=== PATIENT | male | born 1965 | race Caucasian/White ===

== ENCOUNTER 2016-06-10 08:53 | Day surgery (SDC) | payer OTHER ==
[~2016-06-10 08:53] MED LIST: ceFAZolin 2 GM/DEXTROSE 100 ML IV ONE
[2016-06-10] MEDS ORDERED: LR 1,000 ML IV ONE (09:10)
[2016-06-10] MEDS ORDERED: LIDOCAINE 1% 5 ML SDV ID PRN (09:10)
[2016-06-10] MEDS ORDERED: CEFAZOLIN 2 GM/DEXTROSE/100 ML BAG IV ONE (09:16)
[2016-06-10] MEDS ORDERED: LIDOCAINE 1% 2 ML INJ ONE (09:16)
[2016-06-10] MEDS ORDERED: BUPIVACAINE 0.5% 30 ML SDV ONE (10:56)
[2016-06-10] MEDS ORDERED: MIDAZOLAM 2 MG/2 ML VIAL ONE ×2 (11:19→11:20)
[2016-06-10] MEDS ORDERED: PROPOFOL 200 MG/20 ML VIAL ONE (11:21)
[2016-06-10] MEDS ORDERED: fentaNYL 100 MCG/2 ML INJ ONE (11:21)
[2016-06-10] MEDS ORDERED: PROPOFOL/EMULSION 500 MG/50 ML BOTTLE IV ONE (11:27)
[2016-06-10] MEDS ORDERED: LIDOCAINE 1% 30 ML SDV ONE (11:31)
--- NOTE | 2016-06-10 13:18 | GOP ---
[f rep st] OPERATIVE REPORT DATE OF OPERATION: 06/10/2016 SURGEON: Zaynab Olguin MD RETAIL PHARMACY MANAGER: Lorrie Robin PA-C. ANESTHESIA: Monitored anesthesia care with sedation. ANESTHESIOLOGIST: Dr. Mustapha Coleman. PREOPERATIVE DIAGNOSIS: Incarcerated ventral hernia. POSTOPERATIVE DIAGNOSIS: Incarcerated ventral hernia. PROCEDURE PERFORMED: Ventral hernia. FINDINGS: 1.5 cm defect incarcerated omentum. SPECIMENS: None. ESTIMATED BLOOD LOSS: 10 cc. INDICATIONS: The patient is a 50-year-old who had a previous laparoscopic cholecystectomy. He deve loped a hernia at the extraction site. DESCRIPTION OF PROCEDURE: Fadi was brought into the operating room, placed supine on the table, and monitored anesthesia care with IV sedation was performed. His abdomen was prepped and draped in th e usual sterile fashion. I infiltrated the area with 0.5% Marcaine mixed with 1% lidocaine. I made an incision over the defect. I dissected down through the subcutaneous tissues. I encountered ome ntum. I circumferentially dissected this away from the fascial defect. The fascial defect was abou t 1.5 cm. Once the omentum was fully reduced into the abdominal cavity, I closed the site with 0 PD S. I closed Elgin's with 3-0 Vicryl. I closed the skin with 3-0 Vicryl, followed by 4-0 Monocryl. Dermabond applied. He was awakened in the operating room, transferred to PACU in stable condition . /[id number]/MODL
== END 2016-06-10 13:30 | disposition home or self-care (01) ==
LOC: FSGY 08:53
PROVIDERS: ATTEND Surgery
PROC: 0WQF0ZZ Repair Abdominal Wall, Open Approach (ICD-10-PCS; principal; 2016-06-10 10:45)
DX: K43.0 Incisional hernia with obstruction, without gangrene (principal); K21.9 Gastro-esophageal reflux disease without esophagitis; K58.9 Irritable bowel syndrome, unspecified
CPT/HCPCS: J0690; J2250; J2704; J3010

== ENCOUNTER → 2017-01-12 | Outpatient (CLI) | payer OTHER | LOC: CIMAGING 07:08 | PROVIDERS: ATTEND Family Medicine | DX: R94.5 Abnormal results of liver function studies (principal); R74.8 Abnormal levels of other serum enzymes | CPT/HCPCS: 76705-PO ==

== ENCOUNTER → 2017-09-21 | Outpatient (CLI) | payer OTHER | LOC: CIMAGING 14:59 | PROVIDERS: ATTEND Family Medicine | DX: S43.52XA Sprain of left acromioclavicular joint, initial encounter (principal) | CPT/HCPCS: 73000-PO; 73030-PO ==